=== PATIENT | male | born 1960 | race African-American/Black ===

== ENCOUNTER 2023-04-07 21:20 | Emergency (ER) | payer OTHER, SELFPAY ==
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
--- NOTE | ~2023-04-07 | XR_ITS ---
XR chest 2V 04/07/2023 22:16 Indication: Weakness and dyspnea Procedure: 2 view chest Comparison: No prior studies for comparison. Findings: Cardiomegaly. Pacemaker leads are in expected position. There is opacification of the left upper thorax laterally which may represent focal airspace consolidation or scarring. There is diffuse idiopathic skeletal hyperostosis (DISH) of the spine. Impression: 1: Focal infiltrates left upper thorax laterally may represent atelectasis/scarring or pneumonia. 2: Cardiomegaly. Reviewed, dictated and finalized at location A. Impression: 1: Focal infiltrates left upper thorax laterally may represent atelectasis/scar ring or pneumonia. 2: Cardiomegaly.
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
[2023-04-07 21:27] VITALS: BP 108/43; PULSE 85; RESP 15; TEMP 38.4; O2SAT 96
--- NOTE | 2023-04-07 21:35 | ECG_ITS ---
Measurements Intervals [place] Rate: 80 P: 73 SC: 190 QRS: 16 QRSD: 126 T: 70 QT: 407 QTc: 472 Interpretive Statements SINUS RHYTHM INDETERMINATE AXIS ST DEVIATION AND T-WAVE ABNORMALITY, CONSIDER ISCHEMIA Electronically Signed On 04-09-2023 12:48:04 CDT by Jozef Perkins M.D.
[2023-04-07 22:02] LABS: Basophils Percent Auto 0.6 % (0.2-1.2); Hematocrit 32.2 % (42.0-52.0); Hemoglobin 9.7 g/dL (14.0-18.0); Immature Granulocyte Absolute 0.03 K/mm3 (0.00-0.031); Immature Granulocyte Percent A 0.4 % (0-0.5); Immature Platelet Fraction Pct 3.4 % (0.9-11.2); Lymphocytes Percent Auto 4.2 % (18.3-44.2); Mean Corpuscular HGB Conc 30.1 g/dl (32-36); Mean Corpuscular Hemoglobin 19.8 pg (26-34); Mean Corpuscular Volume 65.8 fl (80-100); Mean Platelet Volume 10.5 fl (7.4-10.4); Monocytes Absolute Auto 0.8 K/mm3 (0.1-0.6); Monocytes Percent Auto 11.5 % (2.6-8.5); Neutrophils Absolute Auto 5.9 K/mm3 (1.3-6.7); Neutrophils Percent Auto 83.3 % (45.5-73.1); Nucleated Red Blood Cells Perc 0.6 % (0.0-0.2); Platelet Count Result 337 k/mm3 (150-375); Red Blood Count 4.89 M/mm3 (4.6-6.20); Red Cell Distribution Width 21.1 % (11.5-14.5); White Blood Count 7.1 K/mm3 (4.5-10.0)
[2023-04-07 22:14] LABS: Alanine Aminotransferase 25 U/L (6-50); Albumin Level 3.3 g/dL (3.5-5.1); Alkaline Phosphatase 188 U/L (38-126); Anion Gap 7 mmol/L (8-16); Anisocytosis 1+ (NORMAL); Aspartate Amino Transferase 33 U/L (17-59); Bilirubin,Total 3.1 mg/dL (0.2-1.3); Blood Urea Nitrogen 43 mg/dL (9-20); Calcium 8.3 mg/dL (8.4-10.2); Carbon Dioxide 28 mmol/L (22-30); Chloride 104 mmol/L (98-107); Estimated CRCL calculation 42 ml/min; Estimated Glomerular Filt Rate 46; Glucose 110 mg/dL (65-110); Platelet Estimate Adequate (Adequate); Potassium 4.3 mmol/L (3.4-5.0); Sodium 139 mmol/L (137-145)
[2023-04-07 22:15] LABS: Microcytosis 1+ (NORMAL); Ovalocytes 1+ (NORMAL); Schistocytes None Seen (NORMAL); Target Cells 2+ (NORMAL)
[2023-04-08] VITALS (37 sets, daily range): BP systolic 99–141; BP diastolic 48–73; PULSE 69–77; RESP 13–23; TEMP 37.2; O2SAT 93–100
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
[2023-04-08 02:55] LABS: Creatine Kinase 90 U/L (55-170)
[2023-04-08 02:57] LABS: INR 1.6; Prothrombin Time 19.7 Seconds (11.1-14.7)
[2023-04-08 02:57] LABS: Alveolar/Arterial O2 Gradient 44.3 mmHg; Base Excess ABG 1.5 mEq/l (+/-2.0); Carboxyhemoglobin 1.6 % THb (0-2.0); Fractional Inspired Oxygen 21 %; HCO3 ABG 25.9 mEq/l (22.0-26.0); Oxygen Content ABG 12.2 %vol (16.0-22.0); Oxygen Saturation ABG 90.6 % (95.0-100.0); PCO2 ABG 40.1 mmHg (35.0-45.0); PO2 ABG 57.4 mmHg (80.0-100.0); PO2 FiO2 Ratio Arterial Blood 2.73 %; Reduced Hemoglobin 11.8 %THb (0-5.0); pH ABG 7.428 (7.350-7.450)
[2023-04-08 02:58] LABS: Partial Thromboplastin Time 37.4 SECONDS (22.3-36.8)
[2023-04-08 02:58] LABS: Modified Allen's Test Pass; Site Drawn RIGHT RADIAL
[2023-04-08 02:59] LABS: Device ROOM AIR
[2023-04-08 03:00] LABS: Oxyhemoglobin 86.6 % THb (90.0-100.0)
[2023-04-08 03:10] LABS: Lipase 25 U/L (23-300)
[2023-04-08] MEDS: SODIUM CHLORIDE 0.9% IV 1,000 ML 999 ML IV CONT ×2 (03:23)
[2023-04-08 03:25] LABS: Ammonia < 9 umol/L (9-30)
[2023-04-08 03:37] LABS: Lactic Acid Reflex 0.9 mmol/L (0.7-2.0)
[2023-04-08 05:08] LABS: Appearance Urine Cloudy (Clear); Bacteria Urine None Seen /hpf; Bilirubin Urine 2+ (Negative); Blood Urine Trace (Negative); Color Urine Dark Yellow (Yellow); Glucose Urine UA 1+ mg/dL (Negative); Ketones Urine Negative (Negative); Leukocyte Esterase Ur Trace LEU/UL (Negative); Nitrate Urine Negative (Negative); Protein Urine 1+ mg/dL (Negative); Squamous Epithelial Cell Urine None seen /hpf (Few); WBC Urine 0-5 /hpf
[2023-04-08 05:12] LABS: Specific Grav Ur 1.056 (1.001-1.035)
[2023-04-08 05:13] LABS: Add Urine Microscopic? YES
[2023-04-08 05:32] LABS: Amphetamine Screen Urine Negative (Negative); Barbiturate Screen Urine Negative (Negative); Benzodiazepines Screen Urine Negative (Negative); Cannabinoid Screen Urine Negative (Negative); Cocaine Screen Urine Negative (Negative); Methadone Screen Urine Negative (Negative); Opiate Screen Urine Negative (Negative); Phencyclidine Screen Urine Negative (Negative)
[2023-04-08] MEDS: CEFEPIME 2 GM/NS 50 ML 2 GM/50 ML BAG IVPB (07:02)
[2023-04-08] MEDS: VANCOMYCIN 1,250 MG/NS 250 ML 1,250 MG/250 ML BAG 166.67 MG IVPB (07:46)
[2023-04-08] MEDS: VANCOMYCIN 1,000 MG/NS 250 ML 1,000 MG/250 ML BAG 250 MG IVPB (09:21)
[2023-04-08 11:34] LABS: MRSA (PCR) DETECTED (NOT DETECTE)
== END 2023-04-08 11:15 | disposition short-term general hospital (02) ==
PROVIDERS: Physician Assistant; Emergency Provider Emergency Medicine; PCP Internal Medicine Infectious Disease
DX: J18.9 Pneumonia, unspecified organism (principal); R10.84 Generalized abdominal pain; R94.31 Abnormal electrocardiogram [ECG] [EKG]; I51.7 Cardiomegaly; G93.89 Other specified disorders of brain; R90.82 White matter disease, unspecified; M47.812 Spondylosis without myelopathy or radiculopathy, cervical region; J43.9 Emphysema, unspecified; K38.1 Appendicular concretions; K43.9 Ventral hernia without obstruction or gangrene; V29.99XA Rider (driver) (passenger) of other motorcycle injured in unspecified traffic accident, initial encounter
CPT/HCPCS: 36415; 36600; 70450; 71046; 71260; 72125; 74177; 80053; 80307; 81001; 82140; 82375; 82550; 82805; 83050; 83605; 83690; 85025; 85055; 85610; 85730; 87040; 87076; 87077; 87081; 87185; 87186; 87641; 93005; 96361; 96365; 96366; 96367; 99285; J0692; J3370; J7030; Q9967